=== PATIENT | male | born 1990 | race Caucasian/White ===

== ENCOUNTER 2016-12-17 13:34 | Emergency (ER) | payer OTHER ==
[2016-12-17] MEDS ORDERED: IV NORMAL SALINE 1000ML BAG 1,000 ML IV SCH (13:47)
[2016-12-17] MEDS ORDERED: KETOROLAC TROMETHAMINE 30 MG/ML INJ. ONE (13:49)
[2016-12-17] MEDS ORDERED: ONDANSETRON PF 4 MG/2 ML VIAL. IV ONE (14:00)
[2016-12-17] MEDS ORDERED: 0.9 % SODIUM CHLORIDE 10 ML DISP.SYRIN. IV PRN (14:00)
[2016-12-17] MEDS ORDERED: KETOROLAC TROMETHAMINE 30 MG/ML INJ. IV ONE (14:00)
[2016-12-17] MEDS: HYDROmorphone 2 MG/ML VIAL IV/SQ PRN ×3 (14:09→15:48)
--- NOTE | 2016-12-17 14:42 | PHYS DOC ---
Past Medical History Additional Past Medical Histor: brain surgery Past Surgical History: Other Additional Past Surgical Histo: brain tumor with 4 brain surgery Smoking: Chew Alcohol Use: Rarely Drug Use: None Adult General Chief Complaint Chief Complaint: BACK PAIN - NO INJURY HPI HPI Patient is a 26-year-old male with sudden onset of right flank pain that woke him up from a nap today at noon. Prednisone he works overnight shift sleepy today with sudden onset of pressure in his right flank with radiation to the right lower abdomen. It is described as sharp and stabbing tendon a 10 not worse with position he cannot get comfortable. He describes some nausea without vomiting diarrhea hematuria or penile discharge. Patient denies any trauma, fevers, diarrhea or vomiting at this time. Patient denies any prior history of the same. He also denies any sick contacts or travel. Pain is not worsened by bowel movements or food. 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 He has no headache no vision changes no other symptoms. 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 Review of Systems Review of Systems Constitutional: Denies fever or chills or scrubs and diaphoresis with the pain. Eyes: Denies change in visual acuity, redness, or eye pain [] HENT: Denies nasal congestion or sore throat [] Respiratory: Denies cough or shortness of breath [] Cardiovascular: No additional information not addressed in HPI [] GI: Describes severe right flank pain with nausea no vomiting no diarrhea no blood in the stools. : Denies dysuria or hematuria [] Musculoskeletal: Denies back pain or joint pain [] Integument: Denies rash or skin lesions [] Neurologic: Denies headache, focal weakness or sensory changes [] Endocrine: Denies polyuria or polydipsia [] Current Medications Current Medications Current Medications Medications (Trade) Dose Ordered Sig/Dennis Start Time Stop Time Status Last Admin Dose Admin Hydromorphone HCl (Dilaudid) 1 mg PRN Q15MIN PRN 12/17/16 14:00 12/18/16 13:59 12/17/16 15:48 1 MG Ketorolac Tromethamine (Toradol) 30 mg STK-MED ONCE 12/17/16 13:49 12/17/16 13:50 DC Ondansetron HCl (Zofran) 4 mg 1X ONCE 12/17/16 14:00 12/17/16 14:01 DC 12/17/16 13:55 4 MG Sodium Chloride (Normal Saline Flush) 10 ml QSHIFT PRN 12/17/16 14:00 Allergies Allergies Allergies Coded Allergies Type Severity Reaction Last Updated Verified No Known Drug Allergies 12/17/16 No Physical Exam Physical Exam The patient's vital signs record of this chart patient is noted to be hypertensive and bradycardic. Constitutional: Well developed, well nourished, patient understand comfortable mildly diaphoretic laying on the gurney but not comfortable writing around. HENT: Normocephalic, atraumatic, bilateral external ears normal, oropharynx moist, no oral exudates, nose normal. [] Eyes: PERRLA, EOMI, conjunctiva normal, no discharge. [] Neck: Normal range of motion, no tenderness, supple, no stridor. [] Cardiovascular:Heart rate regular rhythm, no murmur [] Lungs & Thorax: Bilateral breath sounds clear to auscultation [] Abdomen: Bowel sounds normal, soft, no tenderness, no masses, no pulsatile masses. [] Skin: Warm, skin is moist is diaphoretic. Back: No tenderness, Extremities: No tenderness, no cyanosis, no clubbing, ROM intact, no edema. [] Neurologic: Alert and oriented X 3, normal motor function, normal sensory function, no focal deficits noted. [] Psychologic: Affect normal, judgement normal, mood normal. [] Current Patient Data Vital Signs Vital Signs Date Time Temp Pulse Resp B/P (MAP) Pulse Ox O2 Delivery O2 Flow Rate FiO2 12/17/16 14:52 14 12/17/16 14:30 56 154/86 (108) 84 Room Air 12/17/16 14:01 97.8 97.8 Lab Values Laboratory Tests Test 12/17/16 14:47 12/17/16 16:00 White Blood Count 11.2 x10^3/uL (4.0-11.0) H Red Blood Count 5.05 x10^6/uL (4.30-5.70) Hemoglobin 14.7 g/dL (13.0-17.5) Hematocrit 42.1 % (39.0-53.0) Mean Corpuscular Volume 83 fL (79-100) Mean Corpuscular Hemoglobin 29 pg (25-35) Mean Corpuscular Hemoglobin Concent 35 g/dL (31-37) Red Cell Distribution Width 13.4 % (11.5-14.5) Platelet Count 187 x10^3/uL (140-400) Neutrophils (%) (Auto) 80 % (31-73) H Lymphocytes (%) (Auto) 11 % (24-48) L Monocytes (%) (Auto) 7 % (0-9) Eosinophils (%) (Auto) 1 % (0-3) Basophils (%) (Auto) 1 % (0-3) Neutrophils # (Auto) 8.9 x10^3uL (1.8-7.7) H Lymphocytes # (Auto) 1.2 x10^3/uL (1.0-4.8) Monocytes # (Auto) 0.8 x10^3/uL (0.0-1.1) Eosinophils # (Auto) 0.1 x10^3/uL (0.0-0.7) Basophils # (Auto) 0.1 x10^3/uL (0.0-0.2) Sodium Level 141 mmol/L (136-145) Potassium Level 3.4 mmol/L (3.5-5.1) L Chloride Level 105 mmol/L (98-107) Carbon Dioxide Level 28 mmol/L (21-32) Anion Gap 8 (6-14) Blood Urea Nitrogen 12 mg/dL (8-26) Creatinine 1.1 mg/dL (0.7-1.3) Estimated GFR (Cockcroft-Gault) 81.6 BUN/Creatinine Ratio 11 (6-20) Glucose Level 110 mg/dL (70-99) H Calcium Level 8.8 mg/dL (8.5-10.1) Total Bilirubin 0.9 mg/dL (0.2-1.0) Aspartate Amino Transferase (AST) 18 U/L (15-37) Alanine Aminotransferase (ALT) 39 U/L (16-63) Alkaline Phosphatase 76 U/L (46-116) Total Protein 7.0 g/dL (6.4-8.2) Albumin 4.1 g/dL (3.4-5.0) Albumin/Globulin Ratio 1.4 (1.0-1.7) Lipase 61 U/L (73-393) L Urine Collection Type U cath Urine Color Yellow Urine Clarity Cloudy Urine pH 7.5 Urine Specific Eleanor 1.015 Urine Protein Negative mg/dL (NEG-TRACE) Urine Glucose (UA) Negative mg/dL (NEG) Urine Ketones (Stick) Trace mg/dL (NEG) Urine Blood Large (NEG) Urine Nitrite Negative (NEG) Urine Bilirubin Negative (NEG) Urine Urobilinogen Dipstick 1.0 mg/dL (0.2 mg/dL) Urine Leukocyte Esterase Negative (NEG) Urine RBC 11-20 /HPF (0-2) Urine WBC 0 /HPF (0-4) Urine Squamous Epithelial Cells None /LPF Urine Transitional Epithelial Cells Few /LPF Urine Amorphous Sediment Present /HPF Urine Bacteria 0 /HPF (0-FEW) Laboratory Tests 12/17/16 14:47 Laboratory Tests 12/17/16 14:47 EKG EKG [] Radiology/Procedures Radiology/Procedures [] IMAGING REPORT Signed PATIENT: GILBERTO BEEBE ACCOUNT: [id number] : 1990 LOCATION: ER AGE: 26 SEX: M EXAM STATUS: REG ER ORD. PHYSICIAN: ERNIE RAM MD REASON: right flank pain PROCEDURE: CT ABDOMEN PELVIS WO CONTRAST Indication right flank pain. Axial images through the abdomen and pelvis were obtained. The examination was tailored for the detection of renal and/or ureteral calculi. No prior imaging is available. There is tubing noted extending into the abdominal cavity. Clinical correlation advised. (This could represent ADMISSION LIAISON shunt tubing). There is a tiny, 2 mm, pulmonary nodule in the right middle lobe. No acute or significant finding at either lung base is seen. The liver and spleen appear unremarkable and the gallbladder appears grossly normal. No pancreatic abnormality is seen. There are no adrenal masses. There are no renal calculi on either side. There is, however, mild right hydronephrosis and hydroureter to the level of a 3 mm calculus just above the UVJ. No additional finding is seen in the abdomen. No additional finding is seen in the pelvis apart from a small amount of free fluid in the dependent portion which is probably a function of the tubing referenced previously. IMPRESSION: 3 mm calculus distal right ureter just above the UVJ with associated mild obstructive uropathy. Small amount of free fluid in the dependent portion of the pelvis likely secondary to shunt tubing PQRS Compliance Statement: One or more of the following individualized dose reduction techniques were utilized for this examination: 1. Automated exposure control 2. Adjustment of the mA and/or kV according to patient size 3. Use of iterative reconstruction technique Course & Med Decision Making Course & Med Decision Making Pertinent Labs and Imaging studies reviewed. (See chart for details) She presents with sudden onset of right flank pain that is never had before. He denies trauma my concern initially upon presentation his kidney stone versus pyonephritis or UTI. Patient also has a ventriculostomy shunts 2 but no history of headache or change in mental status. Initial presentation he was very diaphoretic unable to get comfortable. Differential diagnosis also includes abdominal aneurysm, renal colic, trauma to his lumbar spine, tumors to his lumbar spine causing compression fracture or tuberculosis. Patient arrived was able to tolerate CT scan. Patient's CBC demonstrates increased leukocytosis with a left predominance. Patient also has mild elevation of his glucose level at 110. Patient's potassium level is 3.4 which is mildly low. At this point CT scan is not returned. Time is now 3 PM. He feels markedly better time is now 4:[address] scan returned demonstrating a small 3 mm UVJ stone. Also makes, about free fluid in the abdomen. Which is likely secondary to the ventriculostomy shunt straining CSF fluid from this head. Patient's pain is well-controlled patient is no longer diaphoretic tolerating by mouth fluids. Patient's urinalysis has now returned demonstrated cells without signs of infection. Negative for bacteria and negative for white blood cells. Impression: Renal colic/nephrolithiasis with mild hydronephrosis. Patient has mild leukocytosis. [] Dragon Disclaimer Dragon Disclaimer This electronic medical record was generated, in whole or in part, using a voice recognition dictation system. Departure Departure Impression: Primary Impression: Nephrolithiasis Additional Impressions: Kidney stone on right side Abdominal pain Disposition: HOME, SELF-CARE Condition: IMPROVED Referrals: NO PCP (PCP) Patient Instructions: Diet for Kidney Stones, Kidney Stones Additional Instructions: Please follow-up with her primary care doctor for referral to urology if symptoms continue. A 3 mm stone should be very well small enough to pass spontaneous. Please use the medications as prescribed. Please return for any fevers, greater than 102.2 despite treatment or given any question concerns. I would also advise you return here to him or to private ER unable to urinate greater than 8-12 hours. Or if you have any questions or concerns about your treatment protocol. Scripts Ondansetron (ZOFRAN ODT) 4 Mg Tab.rapdis 4 MG PO BID Y for NAUSEA/VOMITING for 10 Days, #20 TAB Prov: ERNIE RAM MD 12/17/16 Tamsulosin Hcl (FLOMAX) 0.4 Mg Cap.er.24h 1 CAP PO DAILY, #30 CAP 0 Refills Prov: ERNIE RAM MD 12/17/16 Naproxen (NAPROSYN) 500 Mg Tablet 1 TAB PO BID, #14 TAB 1 Refill Prov: ERNIE RAM MD 12/17/16 Hydrocodone Bit/Acetaminophen (HYDROCODONE-APAP 5-325 ) 1 Each Tablet 1-2 TAB PO PRN Q6HRS Y for PAIN for 5 Days, #10 TAB 0 Refills Prov: ERNIE RAM MD 12/17/16 Problem Qualifiers ERNIE RAM MD Dec 17, 2016 14:42
[2016-12-17 14:53] LABS: BASO # 0.1 x10^3/uL (0.0-0.2); BASO % 1 % (0-3); EOS % 1 % (0-3); HEMATOCRIT 42.1 % (39.0-53.0); HEMOGLOBIN 14.7 g/dL (13.0-17.5); LYMPH # 1.2 x10^3/uL (1.0-4.8); LYMPH % 11 % (24-48); MEAN CORPUSCULAR HEMOGLOBIN 29 pg (25-35); MEAN CORPUSCULAR HGB CONC 35 g/dL (31-37); MEAN CORPUSCULAR VOLUME 83 fL (79-100); MONO % 7 % (0-9); NEUT % 80 % (31-73); PLATELET COUNT 187 x10^3/uL (140-400); RED BLOOD COUNT 5.05 x10^6/uL (4.30-5.70); RED CELL DISTRIBUTION WIDTH 13.4 % (11.5-14.5); WHITE BLOOD COUNT 11.2 x10^3/uL (4.0-11.0)
--- NOTE | 2016-12-17 15:01 | EKG ---
[facility] [address] [place] [address] Test Date: 2016-12-17 Test Time: 14:20:35 Pat Name: GILBERTO BEEBE Department: Room: Gender: M Photographer News: : 1990 Requested By: ERNIE RAM Order Number: [id number] Reading MD: Homero Salazar Measurements Intervals [place] Rate: 46 P: 34 UT: 164 QRS: 34 QRSD: 102 T: 31 QT: 424 QTc: 372 Interpretive Statements SINUS BRADYCARDIA ATRIAL PREMATURE COMPLEX(ES) NONSPECIFIC ST-T WAVE CHANGES. RI6.01 Unconfirmed report No previous ECG available for comparison Electronically Signed On 12-22-2016 9:43:09 CDT by Homero Salazar
[2016-12-17 15:07] LABS: CALCIUM 8.8 mg/dL (8.5-10.1); CREATININE 1.1 mg/dL (0.7-1.3); GFR 81.6; POTASSIUM 3.4 mmol/L (3.5-5.1)
[2016-12-17 15:14] LABS: ALBUMIN 4.1 g/dL (3.4-5.0); ALBUMIN/GLOBULIN RATIO 1.4 (1.0-1.7); TOTAL BILIRUBIN 0.9 mg/dL (0.2-1.0)
--- NOTE | 2016-12-17 15:49 | RAD ---
Indication right flank pain. Axial images through the abdomen and pelvis were obtained. The examination was tailored for the detection of renal and/or ureteral calculi. No prior imaging is available. There is tubing noted extending into the abdominal cavity. Clinical correlation advised. (This could represent MECHANIC RECOVERY shunt tubing). There is a tiny, 2 mm, pulmonary nodule in the right middle lobe. No acute or significant finding at either lung base is seen. The liver and spleen appear unremarkable and the gallbladder appears grossly normal. No pancreatic abnormality is seen. There are no adrenal masses. There are no renal calculi on either side. There is, however, mild right hydronephrosis and hydroureter to the level of a 3 mm calculus just above the UVJ. No additional finding is seen in the abdomen. No additional finding is seen in the pelvis apart from a small amount of free fluid in the dependent portion which is probably a function of the tubing referenced previously. IMPRESSION: 3 mm calculus distal right ureter just above the UVJ with associated mild obstructive uropathy. Small amount of free fluid in the dependent portion of the pelvis likely secondary to shunt tubing PQRS Compliance Statement: One or more of the following individualized dose reduction techniques were utilized for this examination: 1. Automated exposure control 2. Adjustment of the mA and/or kV according to patient size 3. Use of iterative reconstruction technique
[2016-12-17 16:07] LABS: BILIRUBIN,URINE NEGATIVE (NEG); GLUCOSE,URINE NEGATIVE (NEG); NITRITE,URINE NEGATIVE (NEG); PH,URINE 7.5; PROTEIN,URINE NEGATIVE (NEG-TRACE)
[2016-12-17 16:17] LABS: BACTERIA,URINE 0 /HPF (0-FEW); WBC,URINE 0 /HPF (0-4)
[2016-12-17] MEDS ORDERED: TAMS0.4C97 PO (16:27)
[2016-12-17] MEDS ORDERED: HYDR-2758 PO (16:27)
[2016-12-17] MEDS ORDERED: ONDA4TAB10 PO (16:27)
[2016-12-17] MEDS ORDERED: NAPR500T PO (16:27)
[2016-12-17 16:33] VITALS: BP 142/88
== END 2016-12-17 17:14 | disposition home or self-care (01) ==
LOC: ER 13:34
DX: N20.2 Calculus of kidney with calculus of ureter (principal); N13.9 Obstructive and reflux uropathy, unspecified; Z98.890 Other specified postprocedural states; F17.220 Nicotine dependence, chewing tobacco, uncomplicated
CPT/HCPCS: 36415; 51702; 74176; 80053; 81001; 83690; 85027; 93005; 96361; 96374; 96375; 96376; 99285; J1170; J1885; J2405; J7030

== ENCOUNTER 2019-07-29 02:21 | Emergency (ER) | payer SELFPAY ==
[~2019-07-29] VITALS: Ht 165.1 cm; Wt 100.0 kg
[~2019-07-29 02:21] MED LIST: HYDR-2761 PO; NAPR-683 PO; ONDA4TAB10 PO; TAMS0.4C97 PO
--- NOTE | 2019-07-29 03:11 | RAD ---
Chest AP portable at 0254: Reason for examination: Cough. The heart size is normal. Mediastinum is unremarkable. Lung silva are clear. No acute bony abnormalities are seen. Impression: No acute cardiopulmonary disease. Electronically signed by: Faith Ludwig MD (07/29/2019 3:08 AM) [id number]
[2019-07-29] MEDS ORDERED: AZIT1PAC PO (03:16)
--- NOTE | 2019-07-29 03:17 | PHYS DOC ---
Past Medical History Past Medical History: No Pertinent History Additional Past Medical Histor: brain surgery; brain tumor Past Surgical History: Other Additional Past Surgical Histo: brain tumor with 4 brain surgery Smoking Status: Current Some Day Smoker Alcohol Use: Occasionally Drug Use: None Adult General Chief Complaint Chief Complaint: SHORTNESS OF BREATH HPI HPI Patient is a 28 year old male presents with the chief complaint of cough, shortness of breath, sore throat, and diarrhea. Patient concerned about the covid-19. Patient expressed he would like to be tested. Denies any fever. Denies any foreign travel. 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 Review of Systems Review of Systems Constitutional: Denies fever or chills [] Eyes: Denies change in visual acuity, redness, or eye pain [] HENT:positive sore throat [] Respiratory: positive cough or shortness of breath [] Cardiovascular: No additional information not addressed in HPI []positive diarrhea [] : Denies dysuria or hematuria [] Musculoskeletal: Denies back pain or joint pain [] Integument: Denies rash or skin lesions [] Neurologic: Denies headache, focal weakness or sensory changes [] Endocrine: Denies polyuria or polydipsia [] All other systems were reviewed and found to be within normal limits, except as documented in this note. Allergies Allergies Allergies Coded Allergies Type Severity Reaction Last Updated Verified No Known Drug Allergies 12/17/16 No Physical Exam Physical Exam Constitutional: Well developed, well nourished, no acute distress, non-toxic appearance. [] HENT: Normocephalic, atraumatic, bilateral external ears normal, oropharynx moist, no oral exudates, nose normal. [] Eyes: PERRLA, EOMI, conjunctiva normal, no discharge. [] Neck: Normal range of motion, no tenderness, supple, no stridor. [] Cardiovascular:Heart rate regular rhythm, no murmur [] Lungs & Thorax: Bilateral breath sounds clear to auscultation [] Abdomen: Bowel sounds normal, soft, no tenderness, no masses, no pulsatile masses. [] Skin: Warm, dry, no erythema, no rash. [] Back: No tenderness, no CVA tenderness. [] Extremities: No tenderness, no cyanosis, no clubbing, ROM intact, no edema. [] Neurologic: Alert and oriented X 3, normal motor function, normal sensory function, no focal deficits noted. [] Psychologic: Affect normal, judgement normal, mood normal. [] Current Patient Data Vital Signs Vital Signs Date Time Temp Pulse Resp B/P (MAP) Pulse Ox O2 Delivery O2 Flow Rate FiO2 07/29/19 02:34 97.9 87 19 141/89 (106) 97 Room Air 97.9 EKG EKG [] Radiology/Procedures Radiology/Procedures [] Impressions: xray negative Course & Med Decision Making Course & Med Decision Making Pertinent Labs and Imaging studies reviewed. (See chart for details) []flu negative Instructed to take Tylenol or motrin as needed for pain or fever. Can take OTC cough medications. Dragon Disclaimer Dragon Disclaimer This electronic medical record was generated, in whole or in part, using a voice recognition dictation system. Departure Departure Impression: Primary Impression: Upper respiratory infection Disposition: HOME, SELF-CARE Condition: STABLE Referrals: NO PCP (PCP) Patient Instructions: Upper Respiratory Infection, Adult Scripts Azithromycin (ZITHROMAX PACKET) 1 Gm Packet 1 PACKET PO ONCE, #1 PACKET 2 tablets day 1 1 tablet day 2-5 Prov: SHARONA CHRISTENSEN DO 07/29/19 Problem Qualifiers Primary Impression: Upper respiratory infection URI type: unspecified viral URI Qualified Codes: J06.9 - Acute upper respiratory infection, unspecified SHARONA CHRISTENSEN DO Jul 29, 2019 03:17
[2019-07-29 03:41] LABS: INFLUENZA A PATIENT NEGATIVE (NEGATIVE); INFLUENZA B PATIENT NEGATIVE (NEGATIVE)
[2019-07-29 03:50] VITALS: BP 155/84
== END 2019-07-29 03:54 | disposition home or self-care (01) ==
LOC: ER 02:21
DX: J06.9 Acute upper respiratory infection, unspecified (principal); R06.02 Shortness of breath; R19.7 Diarrhea, unspecified; R05 Cough
CPT/HCPCS: 71045; 87804; 99284